=== PATIENT | male | born 1990 | race Caucasian/White ===

== ENCOUNTER 2021-03-26 01:44 | Emergency (ER) | payer OTHER ==
[~2021-03-26] VITALS: Ht 185.4 cm; Wt 92.5 kg
--- NOTE | 2021-03-26 02:00 | NUR ---
BIBS C/O FEELING "SLEEPY WITH PALPITATIONS" AFTER STARTING NEW MEDICATION DULOXETINE DR 30MG. +N/V. PATIENT ALERT AND ORIENTED X3. AMBULATORY WITH NON LABORED BREATHING. PLACED IN BED 09 ON MONITOR AND POX.
[2021-03-26] MEDS ORDERED: LORAZEPAM INJ 2 MG/ML VIAL ONE ×2 (02:08→04:36)
--- NOTE | 2021-03-26 02:20 | NUR ---
20G IV LINE INITIATED AT [facility]. PATENT AND INTACT. BLOOD DRAWN AND SENT TO LAB.
[2021-03-26] MEDS ORDERED: LORAZEPAM INJ 2 MG/ML VIAL IV ONE ×2 (02:30→05:00)
[2021-03-26] MEDS ORDERED: IV NS 0.9% 1,000 ML IV ONE (02:30)
--- NOTE | 2021-03-26 02:30 | NUR ---
XRAY AT BEDSIDE
[2021-03-26 02:45] LABS: BASOPHILS % (AUTO) 0.5 % (0.0-2.0); EOSINOPHILS % (AUTO) 2.2 % (0.0-6.0); HEMATOCRIT 42 % (39-51); HEMOGLOBIN 14.3 g/dL (13.5-17.5); LYMPHOCYTES # (AUTO) 1.4 K/uL (0.8-4.8); MEAN CORPUSCULAR HGB CONC 34 g/dl (31.0-36.0); MEAN CORPUSCULAR VOLUME 90 fL (80-96); MONOCYTES # (AUTO) 0.6 K/uL (0.1-1.30); MONOCYTES % (AUTO) 8.5 % (2.0-12.0); NEUTROPHILS # (AUTO) 5.3 K/uL (1.8-8.9); NEUTROPHILS % (AUTO) 70.8 % (43.0-81.0); PLATELET COUNT (AUTO) 269 K/uL (150-450); RED BLOOD CELL COUNT(AUTO) 4.72 MIL/uL (4.5-6.0); WHITE BLOOD COUNT (AUTO) 7.5 K/uL (4.3-11.0)
[2021-03-26 03:04] LABS: MAGNESIUM 2.6 mg/dL (1.8-2.4)
[2021-03-26 03:06] LABS: CALCIUM, SERUM 8.8 mg/dL (8.5-10.1); CARBON DIOXIDE 29 mmol/L (21-32); CHLORIDE 101 mmol/L (98-107); CREATININE 1.1 mg/dL (0.6-1.3); GLUCOSE 94 mg/dL (74-106); POTASSIUM 3.9 mmol/L (3.5-5.1); SODIUM SERUM 139 mmol/L (136-145); UREA NITROGEN, BLOOD 22 mg/dL (7-18)
[2021-03-26 03:18] LABS: THYROID STIMULATING HORMONE 1.024 uIU/mL (0.358-3.74)
--- NOTE | 2021-03-26 04:57 | NUR ---
Patient discharged to home in stable condition. Written and verbal after care instructions given. Patient verbalizes understanding of instruction.
[2021-03-26 05:02] VITALS: BP 133/67
== END 2021-03-26 05:02 | disposition home or self-care (01) ==
LOC: ER 02:12
DX: R00.2 Palpitations (principal); T43.221A Poisoning by selective serotonin reuptake inhibitors, accidental (unintentional), initial encounter; Z60.2 Problems related to living alone; Y92.89 Other specified places as the place of occurrence of the external cause
CPT/HCPCS: 36415; 71045; 80048; 83735; 84443; 84484; 85025; 93005; 96361; 96374; 96376; 99285; J2060 ×2; J7030

== ENCOUNTER 2021-08-10 05:27 | Emergency (ER) | payer OTHER ==
[~2021-08-10] VITALS: Ht 188 cm; Wt 93.0 kg
--- NOTE | 2021-08-10 06:00 | NUR ---
BIBSELF C/O CP X 2 HRS AND PALPITATIONS, TOOK Clonazepam 1 MG SITE COORDINATOR. PT IS A/O X 4, TAKEN TO ER BED 04. PATIENT CONNECTED TO CARDIAC AND POX MONITOR.
--- NOTE | 2021-08-10 06:07 | NUR ---
SUPPLY TEACHER AT PT'S BEDSIDE
[2021-08-10 06:24] LABS: BASOPHILS % (AUTO) 0.4 % (0.0-2.0); HEMATOCRIT 44 % (39-51); HEMOGLOBIN 15.2 g/dL (13.5-17.5); LYMPHOCYTES # (AUTO) 1.9 K/uL (0.8-4.8); LYMPHOCYTES % (AUTO) 24.2 % (20.0-44.0); MEAN CORPUSCULAR HGB CONC 34 g/dl (31.0-36.0); MEAN CORPUSCULAR VOLUME 88 fL (80-96); MONOCYTES # (AUTO) 0.7 K/uL (0.1-1.30); MONOCYTES % (AUTO) 8.4 % (2.0-12.0); NEUTROPHILS # (AUTO) 5.2 K/uL (1.8-8.9); PLATELET COUNT (AUTO) 279 K/uL (150-450); RED BLOOD CELL COUNT(AUTO) 5.03 MIL/uL (4.5-6.0)
--- NOTE | 2021-08-10 06:26 | NUR ---
COFFEE HOST AT PT'S BEDSIDE
[2021-08-10 06:51] LABS: ALANINE AMINOTRANSFERASE 46 U/L (12-78); ALBUMIN 4.1 g/dL (3.4-5.0); ALKALINE PHOSPHATASE 57 U/L (46-116); ASPARTATE AMINOTRANSFERASE 45 U/L (15-37); BILIRUBIN,DIRECT 0.1 mg/dL (0.0-0.2); BILIRUBIN,TOTAL 0.2 mg/dL (0.2-1.0); CALCIUM, SERUM 8.7 mg/dL (8.5-10.1); CARBON DIOXIDE 26 mmol/L (21-32); CHLORIDE 102 mmol/L (98-107); GLUCOSE 106 mg/dL (74-106); POTASSIUM 3.5 mmol/L (3.5-5.1); SODIUM SERUM 140 mmol/L (136-145); TOTAL PROTEIN, SERUM 8.2 g/dL (6.4-8.2); UREA NITROGEN, BLOOD 13 mg/dL (7-18)
--- NOTE | 2021-08-10 07:15 | NUR ---
Received pt from [facility] awake and alert respiraion spont and easy wating for dipo dineses chest pain or sob
[2021-08-10] MEDS ORDERED: IV NS 0.9% 1,000 ML IV ONE (08:00)
[2021-08-10] MEDS ORDERED: LORAZEPAM INJ 2 MG/ML VIAL IV ONE (08:00)
[2021-08-10] MEDS ORDERED: ONDANSETRON HCL/PF 4 MG/2 ML VIAL IV ONE (08:00)
[2021-08-10] MEDS ORDERED: ONDANSETRON HCL/PF 4 MG/2 ML VIAL ONE (08:21)
[2021-08-10] MEDS ORDERED: LORAZEPAM INJ 2 MG/ML VIAL ONE (08:22)
--- NOTE | 2021-08-10 09:40 | NUR ---
URINE SAMPLE COLLECTED AND SENT TO LAB
--- NOTE | 2021-08-10 09:48 | NUR ---
D/C INSTRACTION GIVEN TO PT FULLY AND VERBLIZED UNDERSTOOD
[2021-08-10 10:00] VITALS: BP 136/85
== END 2021-08-10 10:01 | disposition home or self-care (01) ==
LOC: ER 05:28
DX: R07.89 Other chest pain (principal); R00.2 Palpitations; F41.9 Anxiety disorder, unspecified; Z60.2 Problems related to living alone
CPT/HCPCS: 36415; 71045; 80048; 80076; 84484 ×2; 85025; 85730; 87491 ×2; 87591; 93005 ×2; 96361; 96374; 96375; 99285; J2060; J2405; J7030

== ENCOUNTER 2021-08-13 01:05 | Emergency (ER) | payer OTHER ==
[~2021-08-13] VITALS: Ht 185.4 cm; Wt 90.7 kg
--- NOTE | 2021-08-13 01:10 | NUR ---
TO ER BED 13. BIBSELF C/O PANIC ATTACK. ADMITS TO DRINKING WINE TODAY. HX OF PANIC ATTACKS. CONNECTED TO MONITOR. AWAITING MD PORTER
[2021-08-13] MEDS ORDERED: MIDAZOLAM HCL 2 MG/2ML VIAL ONE (01:13)
--- NOTE | 2021-08-13 01:18 | NUR ---
BLOOD COLLECTED AND SENT TO LAB
[2021-08-13] MEDS ORDERED: MIDAZOLAM HCL 2 MG/2ML VIAL IV ONE (01:30)
[2021-08-13 02:15] LABS: BASOPHILS # (AUTO) 0.1 K/uL (0.0-0.2); BASOPHILS % (AUTO) 0.7 % (0.0-2.0); EOSINOPHILS % (AUTO) 1.5 % (0.0-6.0); HEMATOCRIT 47 % (39-51); HEMOGLOBIN 16.2 g/dL (13.5-17.5); LYMPHOCYTES # (AUTO) 2.4 K/uL (0.8-4.8); LYMPHOCYTES % (AUTO) 26.7 % (20.0-44.0); MEAN CORPUSCULAR HGB CONC 34 g/dl (31.0-36.0); MEAN CORPUSCULAR VOLUME 88 fL (80-96); MONOCYTES # (AUTO) 0.8 K/uL (0.1-1.30); MONOCYTES % (AUTO) 8.9 % (2.0-12.0); NEUTROPHILS # (AUTO) 5.5 K/uL (1.8-8.9); NEUTROPHILS % (AUTO) 62.2 % (43.0-81.0); PLATELET COUNT (AUTO) 320 K/uL (150-450); RED BLOOD CELL COUNT(AUTO) 5.39 MIL/uL (4.5-6.0); WHITE BLOOD COUNT (AUTO) 8.8 K/uL (4.3-11.0)
--- NOTE | 2021-08-13 02:18 | NUR ---
URINE SAMPLE COLLECTED
[2021-08-13 02:33] LABS: CALCIUM, SERUM 8.3 mg/dL (8.5-10.1); CREATININE 1.1 mg/dL (0.6-1.3)
[2021-08-13] MEDS ORDERED: LORAZEPAM 1 MG TABLET PO ONE (03:30)
[2021-08-13] MEDS ORDERED: LORAZEPAM 1 MG TABLET ONE (03:46)
--- NOTE | 2021-08-13 05:57 | NUR ---
PT IS SLEEPING AND UNABLE TO ARROUSE. MD MADE AWARE. WILL CONTINUE TO MONITOR.
--- NOTE | 2021-08-13 08:27 | NUR ---
PT IS AWAKE, ALERT AND ORIENTED. AMBULATORY ON STEADY GAIT. PT IS CLEARED BY MD FOR DC.
--- NOTE | 2021-08-13 08:28 | NUR ---
PT'S CAR KEYS ARE WITH THE SECURITY. PT WILL BE PICKING UP HIS CAR LATER.
--- NOTE | 2021-08-13 08:29 | NUR ---
Patient discharged to home in stable condition. Written and verbal after care instructions given. Patient verbalizes understanding of instruction. Pt ambulatory with a steady gait. Pt left on a taxi.
[2021-08-13 08:30] VITALS: BP 137/85
[2021-08-14] MEDS ORDERED: LORAZEPAM INJ 2 MG/ML VIAL ONE (21:32)
[2021-08-14] MEDS ORDERED: ONDANSETRON 4 MG TAB.RAPDIS ONE ×2 (22:26→22:31)
== END 2021-08-13 08:31 | disposition home or self-care (01) ==
LOC: ER 01:09
DX: F41.0 Panic disorder [episodic paroxysmal anxiety] (principal); F10.129 Alcohol abuse with intoxication, unspecified; F41.9 Anxiety disorder, unspecified; Z60.2 Problems related to living alone; Y90.8 Blood alcohol level of 240 mg/100 ml or more
CPT/HCPCS: 36415; 71045; 80048; 80307; 80320; 84484 ×2; 85025; 93005 ×2; 96374; 99285; J2250; G0480; J2060; Q0162

== ENCOUNTER 2021-08-14 21:08 | Emergency (ER) | payer OTHER ==
[~2021-08-14] VITALS: Ht 180.3 cm; Wt 83.9 kg
[2021-08-14] MEDS ORDERED: LORAZEPAM INJ 2 MG/ML VIAL IM ONE (21:30)
--- NOTE | 2021-08-14 21:35 | NUR ---
Patient discharged to home in stable condition. Written and verbal after care instructions given. Patient verbalizes understanding of instruction.
[2021-08-14] MEDS ORDERED: ONDANSETRON 4 MG TAB.RAPDIS PO ONE (22:30)
[2021-08-14 22:34] VITALS: BP 136/70
== END 2021-08-14 22:34 | disposition home or self-care (01) ==
LOC: ER 21:19
DX: F41.9 Anxiety disorder, unspecified (principal); R00.2 Palpitations; Z60.2 Problems related to living alone
CPT/HCPCS: 96372; 99283; J2060; Q0162

== ENCOUNTER 2021-09-02 19:12 | Emergency (ER) | payer OTHER ==
[~2021-09-02] VITALS: Ht 185.4 cm; Wt 86.2 kg
[2021-09-02 20:02] VITALS: BP 139/80
--- NOTE | 2021-09-02 21:00 | NUR ---
PT IS NO LONGER IN HIS ROOM AND HAVE ELOPED FROM THE ER. MADE AWARE
--- NOTE | 2021-09-02 21:00 | NUR ---
Michael bravo in [facility] - 09/03/21 at 0007 by MYARMDONATO .
== END 2021-09-02 21:00 | disposition left against medical advice (07) ==
LOC: ER 19:21
DX: Z53.21 Procedure and treatment not carried out due to patient leaving prior to being seen by health care provider (principal); R11.0 Nausea; F41.9 Anxiety disorder, unspecified